=== PATIENT | female | born 1960 | race African-American/Black ===

== ENCOUNTER → 2020-04-10 | Outpatient (CLI) | payer OTHER ==
--- NOTE | 2020-04-11 08:30 | MM ---
Reason for exam: screening (asymptomatic). Last mammogram was performed 9 years ago. History: Patient is postmenopausal and is nulliparous. Took estrogen beginning at age 48. Physical Findings: A clinical breast exam by your physician is recommended on an annual basis and results should be correlated with mammographic findings. MG Screening Mammo w CAD Bilateral CC and MLO view(s) were taken. Prior study comparison: April 22, 2011, left diagnostic mammogram w/CAD. October 14, 2010, bilateral digital screening mammo w/CAD. There are scattered fibroglandular densities. There is no discrete abnormality. ASSESSMENT: Negative, BI-RAD 1 RECOMMENDATION: Routine screening mammogram of both breasts in 1 year.
== END | disposition home or self-care (01) ==
LOC: RADMAMWWP 10:41
PROVIDERS: ATTEND Family Medicine
DX: Z12.31 Encounter for screening mammogram for malignant neoplasm of breast (principal)
CPT/HCPCS: 77067

== ENCOUNTER → 2021-12-30 | Outpatient (CLI) | payer BC ==
--- NOTE | 2021-12-30 11:29 | CT ---
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 CT DLP: 245 mGycm Automated exposure control for dose reduction was used. Contrast: None Technique: Axial images 3 mm thick sections. Reconstructed images in the coronal plane FINDINGS: Brain appears unremarkable. There is a patent cavum septum pellucidum and cavum vergae, normal varian ts. Ventricles and sulci appear appropriate for the patient's age. The internal auditory canals appear normal without expansion or erosion. Mastoid air cells appear oj ar. External auditory canals are unremarkable. Middle ears appear clear. Semicircular canals and coch kobi appear normal. Incus and malleus have normal orientation. Temporal mandibular junctions appear within normal limits. No suspicious erosions or loss of joint sp ian. IMPRESSION: 1. NO SUSPICIOUS TEMPOROMANDIBULAR ABNORMALITY IDENTIFIED.
== END | disposition home or self-care (01) ==
LOC: RADCTMAIN 08:39
PROVIDERS: ATTEND Otolaryngology Otolaryngology/Facial Plastic Surgery
DX: M26.603 Bilateral temporomandibular joint disorder, unspecified (principal)
CPT/HCPCS: 70480